=== PATIENT | male | born 1945 | race Caucasian/White ===

== ENCOUNTER → 2024-05-16 14:45 | Outpatient (REF) | payer MEDICARE, BC, SELFPAY | LOC: HWRCS 14:45 | PROVIDERS: ATTENDING PHYSICIAN Family Medicine | DX: I70.0 Atherosclerosis of aorta (principal) | CPT/HCPCS: 93306 ==

== ENCOUNTER → 2024-09-13 11:50 | Outpatient (REF) | payer MEDICARE, BC, SELFPAY | LOC: HWRCS 11:50 | PROVIDERS: ATTENDING PHYSICIAN Internal Medicine Cardiovascular Disease; FAMILY PHYSICIAN Family Medicine | DX: R07.89 Other chest pain (principal); I45.2 Bifascicular block; E11.9 Type 2 diabetes mellitus without complications | CPT/HCPCS: 78452; 93017; A9500; J2785 ==

== ENCOUNTER → 2024-09-25 07:53 | Outpatient (REF) | payer MEDICARE, BC, SELFPAY ==
[2024-09-25 11:33] LABS: ALT (SGPT) 38 U/L (0-50); AST (SGOT) 27 U/L (17-59); Albumin 4.5 g/dl (3.5-5.0); Alkaline Phosphatase 72 U/L (38-126); Blood Urea Nitrogen 21 mg/dl (9-20); Calcium 9.3 mg/dl (8.4-10.2); Carbon Dioxide 24 mmol/L (22-30); Chloride 105 mmol/L (98-107); Glucose 223 mg/dl (70-99); Potassium 4.5 mmol/L (3.5-5.1); Sodium 143 mmol/L (135-145); Total Protein 7.4 g/dl (6.3-8.2); eGFR > 60.00
== END ==
LOC: HWLAB 07:53
PROVIDERS: ATTENDING PHYSICIAN Internal Medicine Cardiovascular Disease; FAMILY PHYSICIAN Family Medicine
DX: I35.0 Nonrheumatic aortic (valve) stenosis (principal); E78.00 Pure hypercholesterolemia, unspecified; I70.0 Atherosclerosis of aorta; E78.2 Mixed hyperlipidemia
CPT/HCPCS: 36415; 80053

== ENCOUNTER → 2024-10-02 09:59 | Outpatient (REF) | payer MEDICARE, BC, SELFPAY | LOC: RAD 09:59 | PROVIDERS: ATTENDING PHYSICIAN Internal Medicine Cardiovascular Disease | DX: I35.0 Nonrheumatic aortic (valve) stenosis (principal); E78.00 Pure hypercholesterolemia, unspecified; I70.0 Atherosclerosis of aorta; E78.2 Mixed hyperlipidemia | CPT/HCPCS: 75574; Q9967 ==

== ENCOUNTER → 2024-10-24 08:48 | Outpatient (REF) | payer MEDICARE, BC, SELFPAY ==
[2024-10-24 10:19] LABS: % Basophils 0.5 % (0-2); % Eosinophils 0.8 % (0-6); % Immature Granulocytes 0.3 % (0-0.5); % Monocytes 9.3 % (1.7-9.3); % Neutrophils 69.1 % (42.2-75.2); Absolute Eosinophils 0.1 10^3/uL (0-0.7); Absolute Lymphocytes 1.3 10^3/uL (1.2-3.4); Absolute Monocytes 0.6 10^3/uL (0.1-0.6); Absolute Neutrophils 4.6 10^3/uL (1.4-6.5); Hematocrit 47.8 % (39.0-52.0); Mean Corp Hgb Conc. 33.5 g/dL (33.0-37.0); Mean Corpuscular Hgb 32.3 pg (27.0-31.0); Mean Corpuscular Volume 96.6 fL (80.0-94.0); Mean Platelet Volume 10.8 fL (7.4-10.4); Nucleated Red Blood Cells % 0 % (-); Platelet Count 196 10^3/uL (130-400); Red Blood Cell Count 4.95 10^6/uL (4.70-6.10); Red Cell Dist. Width 13.4 % (11.5-14.5); White Blood Cell Count 6.7 10^3/uL (4.8-10.8)
[2024-10-24 12:48] LABS: ALT (SGPT) 29 U/L (0-50); AST (SGOT) 24 U/L (17-59); Albumin 4.7 g/dl (3.5-5.0); Alkaline Phosphatase 69 U/L (38-126); Blood Urea Nitrogen 19 mg/dl (9-20); Calcium 9.1 mg/dl (8.4-10.2); Carbon Dioxide 25 mmol/L (22-30); Chloride 110 mmol/L (98-107); Glucose 195 mg/dl (70-99); Potassium 4.3 mmol/L (3.5-5.1); Sodium 144 mmol/L (135-145); Total Bilirubin 1.4 mg/dl (0.2-1.3); Total Protein 7.7 g/dl (6.3-8.2); eGFR > 60.00
== END ==
LOC: SDSPAT 08:48
PROVIDERS: ATTENDING PHYSICIAN Internal Medicine Cardiovascular Disease; FAMILY PHYSICIAN Family Medicine; OTHER PHYSICIAN Internal Medicine Cardiovascular Disease
DX: R93.1 Abnormal findings on diagnostic imaging of heart and coronary circulation (principal); E11.9 Type 2 diabetes mellitus without complications
CPT/HCPCS: 36415; 80053; 85025; 93005

== ENCOUNTER 2024-11-01 08:11 | Day surgery (SDC) | payer MEDICARE, BC, SELFPAY ==
[2024-10-24 09:34] VITALS: BMI 28.6
--- NOTE | 2024-10-24 10:43 | HPS.HSE ---
Addendum entered and electronically signed by Chao Aly DO 11/01/24 11:07:
Attestation: I have seen and examined the patient. I can confirm Ms. Martinez's findings and I agree with her assessment and plan as documented. 79-year-old gentleman with hypertension, hyperlipidemia, mild aortic stenosis and diabetes mellitus
presenting for cardiac catheterization. The patient underwent pharmacologic stress test for left shoulder/arm burning with exertion. This was abnormal, demonstrating likely lateral defect. A coronary artery CTA was performed showing severe, dense
calcification of the coronary tree, likely with three-vessel coronary artery disease. He has been referred for cardiac catheterization for clarification of his coronary anatomy.
Original Note:
Family Physician
-
Family Physician: NO INTERVIEW UNKNOWN
Chief Complaint
-
Abnormal coronary CTA. Diabetes mellitus.
History of Present Illness
The patient is a 79 year old male presenting today after an abnormal coronary CTA. He reported to his routine charge aide, Dr. Virginia Hester, in August 2024 that he did notice exertional 'heart burn' in his chest and in his arms
while raking leaves in the Fall. This would resolve with rest. He did not notice this, however, when attempting to split wood. Given his history of diabetes, which is overall well controlled with Metformin, and bifascicular block, a nuclear stress
test was ordered for symptom evaluation. His nuclear stress test on September 13, 2024 demonstrated a reversible defect in the mid to apical lateral wall consistent with ischemia. A subsequent coronary CTA revealed a coronary calcium score of 3,521 with
probable multi-vessel obstructive coronary artery disease involving the LAD, left circumflex, and RCA. It is advised he now undergo a left cardiac catheterization given his most recent test results. He denies any complaints today such as chest pain,
shortness of breath, nausea, vomiting, diarrhea, lightheadedness, dizziness, cough, sore throat, or fever.
Medical History
Past Medical History
Past Medical History: Reports Other
Additional Past Medical History:
1. Abnormal coronary CTA.
2. Diabetes mellitus.
3. Hypertension.
4. Hyperlipidemia.
5. Bifascicular block.
6. Mild aortic stenosis.
7. Near syncope, likely vasovagal, 2018.
8. Obstructive sleep apnea, improving with weight loss.
9. Colon polyps.
10. Diverticulosis.
11. Hemorrhoids.
12. Nephrolithiasis.
13. Fatty liver disease.
14. Cervical herniated discs.
15. Basal cell carcinoma, status post recurrent Mohs.
16. Glaucoma.
17. History of remote tobacco abuse.
Past Surgical History: Reports Other
Additional Past Surgical History:
1. Right rotator cuff repair.
2. Right hand I&D.
3. Multiple Mohs.
4. Tonsillectomy.
5. Bilateral cataract extraction.
6. Colonoscopy.
Social History
Tobacco: Former Smoker (He is a former 1/3 pack per day cigarette smoker who quit tobacco products altogether 25+ years ago. )
Alcohol: Other (He drinks 1 beer or 2 glasses a wine approximately 3 days a week. )
Personal:
Living: Other (He lives with his in a 2 story home. )
Family History
Family History: Not pertinent
Allergies / Home Medications
Allergy/Medication List:
Home medications:
1. Aspirin 81 mg p.o. at bedtime.
2. Atorvastatin 40 mg p.o. daily.
3. Latanoprost 1 drop right eye at bedtime.
4. Lisinopril 40 mg p.o. daily.
5. Metformin 500 mg p.o. twice a day.
6. Metoprolol Succinate 25 mg p.o. at bedtime.
7. Multivitamin 1 tablet p.o. daily.
8. Nitroglycerin 0.4 mg p.o. every 5-15 minutes as needed (max 3 doses).
9. [place] 3 1 capsule p.o. daily.
Allergies: No known allergies.
Review of Systems
-
A 12 point ROS was completed and negative except as noted: Yes
Physical Exam
Vital Signs
Blood pressure 168/87 in the setting of anxiety. Heart rate 61. Respirations 18. Pulse ox 96% on room air.
Height 5 feet, 6.5 inches. Weight 81.5 kg. BMI 28.6.
Physical Exam
General: Well Developed, Well Nourished and No Apparent Distress
HEENT: NormoCephalic, Moist mucous membranes, Atraumatic and PERRLA
Respiratory: Clear
Cardiac: Regular Rhythm
GI: Soft, Non Tender and Non Distended
Musculoskeletal: No Edema and Normal Gait & Station
Skin: Warm, Dry and Rash
Neuro: AO x 3 and Nonfocal/grossly intact
Psych: Anxious
Laboratory Results
-
DIAGNOSTIC STUDIES as of 10/24/2024: White blood cell count 6.7. Hemoglobin 16.0. Platelet count 196,000. Sodium 144. Potassium 4.3. BUN 19. Creatinine 0.9. Glucose 195. Calcium 9.1. AST 24. ALT 29. Albumin 4.7.
EKG 10/24/2024: Normal sinus rhythm. Bifascicular block.
Coronary CTA 10/02/2024: Coronary calcium score of 3,521. The degree of coronary calcification limits assessment of the coronary arteries; cannot exclude multi-vessel obstructive coronary artery disease involving the LAD, left circumflex, and RCA.
Ascending aorta is 3.8cm.
Nuclear stress test 09/13/2024: Abnormal perfusion imaging with a reversible defect in the mid to apical lateral wall consistent with ischemia. Patient exercised for 6:06 and achieved 7 METs and 82% of MPHR. Average exercise capacity. Test then
converted to Lexiscan due to inability to achieve target heart rate. At peak exercise, ECG was positive for ischemia with [address] depressions and patient had chest and back tightness. Systolic function is normal. The ejection fraction is
57%.
Echocardiogram 05/16/2024: Normal biventricular size and systolic function without regional wall motion abnormality. Mild aortic stenosis with trace aortic regurgitation. Compared to previous echo 10/27/2017, there is now mild aortic stenosis.
Impression/Plan
-
IMPRESSION/PLAN:
1. Abnormal coronary CTA and diabetes mellitus: The patient is in need of a left cardiac catheterization with Dr. Chao Aly on 11/01/2024. The benefits and risks of the procedure have been explained to the patient. The patient understands these
risks and wishes to proceed. He is aware to continue his daily baby Aspirin up to and including the morning of his procedure. He will hold his Metformin the morning of his catheterization.
[2024-11-01] VITALS (11 sets, daily range): BP systolic 135–188; BP diastolic 75–106; BMI 28.5
[2024-11-01] MEDS: NSS 244 ML IV (08:41)
[2024-11-01] MEDS: LOW STRENGTH ASPIRIN 81 MG PO (08:41)
--- NOTE | 2024-11-01 12:00 | ITS.CL.CATH ---
[facility] - Catheterization
Cardiac Catheterization
Procedure Report:
CARDIAC CATHETERIZATION REPORT
Date of Procedure: 11/01/2024
Referring: Virgniia Hester M.D.
INDICATION: CAD risk factors, exertional shoulder discomfort, abnormal stress test, abnormal coronary CTA.
PROCEDURE:
1. Left heart catheterization
2. Coronary angiography.
A total of 21 minutes of procedural/moderate sedation was utilized. An independent certified medical aide was present to assist with and help manage the patient's level of consciousness and physiologic status.
ACCESS:
1. 6 Vietnamese right radial artery using modified Seldinger delete.
CATHETERS:
1. 5 Vietnamese JR4.
2. 5 Vietnamese JL 3.5.
3. 5 Vietnamese JL 4.
HEMODYNAMIC DATA
Weight (kg): 81.5
AO (s/d/x, mmHg): 157/85/114
LV (s/x mmHg): 160/17
LEFT VENTRICULOGRAPHY: Not performed.
CORONARY ANGIOGRAPHY
Dominance: Right.
Left Main: Normal size, bifurcating vessel. There is no coronary artery disease.
LAD: Normal size vessel giving rise to 1 significant diagonal. The vessel is densely externally calcified in its proximal margin. There is an 80% lesion in the proximal vessel spanning the origin of the first diagonal. The diagonal is a small
to medium size vessel with a 90% lesion in its ostium.
Ramus: Congenitally absent.
Circumflex: Normal size, nondominant vessel which is essentially a single obtuse marginal supplying the upper part of the inferolateral wall. There is a 50% lesion in the proximal circumflex/OM1. There is a 90% lesion in the distal OM1 which is
also severely tortuous and <2 mm in diameter, unsuitable for percutaneous intervention.
RCA: Large size, dominant vessel with a large posterolateral arcade. There is a 90% lesion in the distal RCA after the crux. There is an 80% lesion in the proximal margin of the large right posterolateral branch. The RPDA is a small, sub-2 mm
vessel. There is a 90% lesion in its proximal margin.
INTERVENTION(S)
None.
Closure Device: Vascular band.
Radiation (mGy): 491.67
DAP (cm2.Gy): 35.0578
Fluoroscopy time (minutes): 2.3
CONCLUSIONS
1. Right dominant circulation with a 90% lesion in the distal RCA after the crux, and 80% lesion in the proximal margin of the large right posterolateral branch, and 90% lesion in the proximal, sub-2 mm RPDA, a 50% lesion in the proximal
circumflex/OM1, and non-intervenable 90% lesion in the small, distal OM1, and 80% lesion in the densely calcified proximal LAD spanning the origin of the first diagonal and a 90% lesion in the ostium of the small first diagonal.
2. Mildly elevated filling pressures (LVEDP = 17 mmHg at 81.5 kg).
RECOMMENDATIONS:
1. Expectant management after cardiac catheterization via right radial approach.
2. Limited weight bearing on the right wrist for one week.
3. Consultation with CT surgery regarding optimal revascularization strategy.
4. OMT/GDMT as hemodynamics will tolerate.
5. Aggressive secondary prevention with high-dose, high potency statin. Goal LDL <55.
Copy to: Virginia Hester M.D., Michael Curran D.O.
Chao Aly DO, FACC, FACP
== END 2024-11-01 14:30 | disposition home or self-care (01) ==
LOC: CATH 08:11
PROVIDERS: ATTENDING PHYSICIAN Internal Medicine Cardiovascular Disease; FAMILY PHYSICIAN Family Medicine; OTHER PHYSICIAN Internal Medicine Cardiovascular Disease
DX: I25.10 Atherosclerotic heart disease of native coronary artery without angina pectoris (principal); R94.39 Abnormal result of other cardiovascular function study; I10 Essential (primary) hypertension; E78.5 Hyperlipidemia, unspecified; I35.0 Nonrheumatic aortic (valve) stenosis; E11.9 Type 2 diabetes mellitus without complications; I45.2 Bifascicular block; G47.33 Obstructive sleep apnea (adult) (pediatric); K76.0 Fatty (change of) liver, not elsewhere classified; Z85.828 Personal history of other malignant neoplasm of skin; Z87.891 Personal history of nicotine dependence; Z86.0100 Personal history of colon polyps, unspecified; Z79.82 Long term (current) use of aspirin; Z79.84 Long term (current) use of oral hypoglycemic drugs
CPT/HCPCS: 99152; C1894; 93458; Q9967

== ENCOUNTER → 2024-11-21 13:47 | Outpatient (REF) | payer MEDICARE, BC, SELFPAY | LOC: HWRCS 13:47 | PROVIDERS: ATTENDING PHYSICIAN Thoracic Surgery (Cardiothoracic Vascular Surgery); FAMILY PHYSICIAN Family Medicine | DX: I25.10 Atherosclerotic heart disease of native coronary artery without angina pectoris (principal); Z01.810 Encounter for preprocedural cardiovascular examination | CPT/HCPCS: 93306; 93880 ==

== ENCOUNTER → 2024-12-04 07:11 | Outpatient (REF) | payer MEDICARE, BC, SELFPAY ==
[2024-12-04 10:58] LABS: PSA, Total - Screen 2.13 ng/ml (0.0-4.0)
[2024-12-04 11:03] LABS: ALT (SGPT) 24 U/L (0-50); AST (SGOT) 22 U/L (17-59); HDL Cholesterol 40 mg/dl; LDL Cholesterol, Calculated 75 mg/dl; Total Cholesterol 134 mg/dl (50-199); Triglyceride 99 mg/dl (10-149); Very Low Density Lipoprotein 19 mg/dl (0-30)
[2024-12-04 11:35] LABS: Glycohemoglobin (HgbA1c) 7.4 % (4.0-5.6)
== END ==
LOC: HWLAB 07:11
PROVIDERS: ATTENDING PHYSICIAN Internal Medicine Cardiovascular Disease; FAMILY PHYSICIAN Family Medicine
DX: E78.00 Pure hypercholesterolemia, unspecified (principal); E11.65 Type 2 diabetes mellitus with hyperglycemia; Z12.5 Encounter for screening for malignant neoplasm of prostate
CPT/HCPCS: 36415; 80061; 83036; 84450; 84460; G0103

== ENCOUNTER → 2025-04-16 07:23 | Outpatient (REF) | payer MEDICARE, BC, SELFPAY ==
[2025-04-16 09:12] LABS: Hematocrit 46.6 % (39.0-52.0); Hemoglobin 15.7 g/dL (13.0-18.0); Mean Corp Hgb Conc. 33.7 g/dL (33.0-37.0); Mean Corpuscular Volume 97.9 fL (80.0-94.0); Nucleated Red Blood Cells % 0 % (-); Platelet Count 185 10^3/uL (130-400); Red Cell Dist. Width 13.8 % (11.5-14.5)
[2025-04-16 09:26] LABS: ALT (SGPT) 52 U/L (0-50); AST (SGOT) 34 U/L (17-59); Blood Urea Nitrogen 21 mg/dl (9-20); Calcium 9.0 mg/dl (8.4-10.2); Carbon Dioxide 28 mmol/L (22-30); Chloride 104 mmol/L (98-107); Glucose 141 mg/dl (70-99); HDL Cholesterol 46 mg/dl; LDL Cholesterol, Calculated 66 mg/dl; Potassium 4.0 mmol/L (3.5-5.1); Sodium 138 mmol/L (135-145); Very Low Density Lipoprotein 16 mg/dl (0-30); eGFR > 60.00
[2025-04-16 11:37] LABS: Glycohemoglobin (HgbA1c) 7.4 % (4.0-5.9)
[2025-04-18 17:20] LABS: Folate 13.5 ng/ml (2.76-20); Vitamin B12 392 pg/ml (239-931)
== END ==
LOC: HWLAB 07:23
PROVIDERS: ATTENDING PHYSICIAN Nurse Practitioner; FAMILY PHYSICIAN Family Medicine; REFERRING PHYSICIAN Internal Medicine Cardiovascular Disease
DX: I25.10 Atherosclerotic heart disease of native coronary artery without angina pectoris (principal); E11.319 Type 2 diabetes mellitus with unspecified diabetic retinopathy without macular edema
CPT/HCPCS: 36415; 80048; 80061; 82607; 82746; 83036; 84450; 84460; 85025